=== PATIENT | male | born 1955 | race Caucasian/White ===

== ENCOUNTER 2020-01-24 09:43 | Emergency (ER) | payer OTHER ==
[~2020-01-24] VITALS: Ht 185.4 cm; Wt 98.4 kg
[2020-01-24 11:36] VITALS: BP 170/110
[2020-01-24] MEDS ORDERED: NAPR-837 PO (11:36)
--- NOTE | 2020-01-24 14:18 | REP ---
REASON FOR EXAM: Bilateral groin pain. PRIORS: None. Ultrasonic evaluation of the right and left groin was performed before and during Valsalva. There are no abnormalities. There are no bowel containing inguinal hernias or other abnormalities. Electronically Signed by Morgan Correia DO 01/24/2020 02:29 P
--- NOTE | 2020-01-24 14:19 | REP ---
SCROTAL SONOGRAPHY: HISTORY: Bilateral groin pain. FINDINGS: High-resolution bilateral scrotal sonography shows no evidence of testicular mass lesion. Testes are homogeneous. Right testicular dimensions are 4.3 x 2.9 x 3.3 cm. The left testis measures 4.1 x 3.0 x 3.1 cm. There are small bilateral hydroceles. There are two or three tiny microcalcifications in the upper pole of the right testis not felt to be significant. Testicular Doppler flow is normal bilaterally. Resistive indices are measured at 0.47 and 0.53 on the right and left respectively. There is a small 4 mm cyst in the head of the epididymis on the left. No other abnormality. IMPRESSION: No acute abnormality noted. Small bilateral hydroceles noted incidentally. 4 mm epididymal cyst on the left. Electronically Signed by Tay Cesar MD 01/24/2020 05:59 P
== END 2020-01-24 11:54 | disposition home or self-care (01) ==
LOC: M ED 09:43
DX: R10.30 Lower abdominal pain, unspecified (principal); N50.3 Cyst of epididymis; R03.0 Elevated blood-pressure reading, without diagnosis of hypertension; N43.3 Hydrocele, unspecified

== ENCOUNTER → 2020-02-16 | Outpatient (CLI) | payer OTHER ==
[~2020-02-16] MED LIST: NAPR-837 PO
[2020-02-16 10:24] LABS: APPEARANCE, URINE CLEAR (CLEAR); BACTERIA, URINE AUTO NEGATIVE (NEGATIVE); BILIRUBIN, URINE AUTO NEGATIVE (NEGATIVE); BLOOD, URINE BLOOD 1+ (NEGATIVE); COLOR, URINE YELLOW (YELLOW); GLUCOSE, URINE (UA) AUTO NEGATIVE (NEGATIVE); KETONE, URINE AUTO NEGATIVE (NEGATIVE); LEUKOCYTE ESTERASE, URINE AUTO NEGATIVE (NEGATIVE); NITRITE, URINE AUTO NEGATIVE (NEGATIVE); PROTEIN, URINE AUTO NEGATIVE (NEGATIVE); RBC, URINE AUTO 3 /HPF (0-3); SPECIFIC GRAVITY URINE AUTO 1.008 (1.002-1.035); SQUAMOUS EPITHELIAL CELL UR AU 0 /HPF (0-6); UROBILINOGEN, URINE AUTO 0.2 mg/dL (0.0-2.0); WBC, URINE AUTO 0 /HPF (0-3)
[2020-02-16 10:26] LABS: BASO % 0.6 % (0.0-1.0); EOS # 0.1 10^3/uL (0.0-0.5); EOS % 0.7 % (0.0-3.0); HEMATOCRIT 46.6 % (42.0-52.0); HEMOGLOBIN 15.6 g/dl (13.5-17.5); LYMPH # 1.5 10^3/uL (1.5-5.0); LYMPH % 21.5 % (24.0-44.0); MEAN CORPUSCULAR HEMOGLOBIN 28.9 pg (27.0-33.0); MEAN CORPUSCULAR HGB CONC 33.5 g/dl (32.0-36.5); MEAN CORPUSCULAR VOLUME 86.3 fl (80.0-96.0); MONO # 0.7 10^3/uL (0.0-0.8); MONO % 10.5 % (0.0-5.0); NEUTROPHILS # 4.6 10^3/uL (1.5-8.5); NEUTROPHILS % 66.4 % (36.0-66.0); PLATELET COUNT, AUTOMATED 197 10^3/uL (150-450); WHITE BLOOD COUNT 6.9 10^3/uL (4.0-10.0)
[2020-02-16 11:03] LABS: ALBUMIN 3.9 GM/DL (3.2-5.2); ALT/SGPT 25 U/L (12-78); BILIRUBIN,TOTAL 0.8 MG/DL (0.2-1.0); BLOOD UREA NITROGEN 18 MG/DL (7-18); CALCIUM LEVEL 9.2 MG/DL (8.8-10.2); CARBON DIOXIDE LEVEL 29 MEQ/L (21-32); CHLORIDE LEVEL 103 MEQ/L (98-107); CHOLESTEROL LEVEL 181 MG/DL (<200); CREATININE FOR GFR 0.82 MG/DL (0.70-1.30); GLOMERULAR FILTRATION RATE > 60.0 (>49); GLUCOSE, FASTING 85 MG/DL (70-100); HDL CHOLESTEROL 48 MG/DL (>40); LDL CHOLESTEROL 109 MG/DL (<100); NON-HDL-C 133 MG/DL; POTASSIUM SERUM 4.5 MEQ/L (3.5-5.1); SODIUM LEVEL 136 MEQ/L (136-145); TRIGLYCERIDES LEVEL 122 MG/DL (<150)
== END ==
LOC: M WUC 08:07
PROVIDERS: ATTEND Nurse Practitioner Family
DX: R10.30 Lower abdominal pain, unspecified (principal); Z13.220 Encounter for screening for lipoid disorders; R35.0 Frequency of micturition; Z12.5 Encounter for screening for malignant neoplasm of prostate
CPT/HCPCS: 36415; 80053; 80061; 81001; 85025; 87086; G0103

== ENCOUNTER → 2020-04-06 | Outpatient (REF) | payer OTHER ==
[2020-05-14 09:29] LABS: Lyme Disease IgG/IgM Antibodie See Separate Report
== END ==
LOC: M SFHCPLAZ 16:48
PROVIDERS: ATTEND Nurse Practitioner Family
DX: M25.50 Pain in unspecified joint (principal)

== ENCOUNTER → 2020-05-17 | Outpatient (CLI) | payer OTHER ==
[2020-05-17 13:40] LABS: BASO # 0.1 10^3/uL (0.0-0.2); BASO % 0.7 % (0.0-1.0); EOS # 0.1 10^3/uL (0.0-0.5); EOS % 1.6 % (0.0-3.0); HEMATOCRIT 45.3 % (42.0-52.0); HEMOGLOBIN 15.6 g/dl (13.5-17.5); LYMPH # 1.4 10^3/uL (1.5-5.0); LYMPH % 20.2 % (24.0-44.0); MEAN CORPUSCULAR HEMOGLOBIN 29.9 pg (27.0-33.0); MEAN CORPUSCULAR HGB CONC 34.4 g/dl (32.0-36.5); MEAN CORPUSCULAR VOLUME 86.8 fl (80.0-96.0); MONO # 0.8 10^3/uL (0.0-0.8); MONO % 10.9 % (0.0-5.0); NEUTROPHILS # 4.6 10^3/uL (1.5-8.5); NEUTROPHILS % 66.3 % (36.0-66.0); PLATELET COUNT, AUTOMATED 200 10^3/uL (150-450); RED BLOOD COUNT 5.22 10^6/uL (4.30-6.10); WHITE BLOOD COUNT 6.9 10^3/uL (4.0-10.0)
[2020-05-17 13:48] LABS: ALBUMIN 3.9 GM/DL (3.2-5.2); ALT/SGPT 28 U/L (12-78); BILIRUBIN,TOTAL 0.6 MG/DL (0.2-1.0); BLOOD UREA NITROGEN 17 MG/DL (7-18); CALCIUM LEVEL 9.4 MG/DL (8.8-10.2); CARBON DIOXIDE LEVEL 29 MEQ/L (21-32); CHLORIDE LEVEL 105 MEQ/L (98-107); CREATININE FOR GFR 0.92 MG/DL (0.70-1.30); GLOMERULAR FILTRATION RATE > 60.0 (>49); GLUCOSE, FASTING 94 MG/DL (70-100); POTASSIUM SERUM 4.7 MEQ/L (3.5-5.1); SODIUM LEVEL 140 MEQ/L (136-145)
--- NOTE | 2020-05-31 14:18 | REPPI ---
KNEE RADIOGRAPH CLINICAL: Bilateral knee pain. TECHNIQUE: Single AP weightbearing view of the right and left knee. FINDINGS: Early advanced symmetric arthritic changes are appreciated. Findings include increased sclerosis along the tibial surface primarily involving the medial portions along with cortical irregularities and early osteophyte formation noted along the medial femoral condyles and medial tibial plateaus. No obvious acute fracture or dislocation. IMPRESSION: Symmetric early advanced osteoarthritic degenerative changes primarily involving the medial compartments. MTDD
== END ==
LOC: M PLAIMG 09:20
PROVIDERS: ATTEND Family Medicine
DX: M17.0 Bilateral primary osteoarthritis of knee (principal); R10.84 Generalized abdominal pain; R53.83 Other fatigue

== ENCOUNTER → 2020-05-22 | Outpatient (CLI) | payer OTHER ==
[~2020-05-22] MED LIST changes: +GASTROGRAFIN SOLUTION 30ML (Q9963) As Ordered ONE; +ISOVUE-370 76% 100ML VIAL As Ordered ONE
--- NOTE | 2020-05-31 14:19 | REP ---
CT ABDOMEN AND PELVIS WITH CONTRAST CLINICAL: Generalized abdominal pain. TECHNIQUE: Axial contrast enhanced images from the lung bases to the pubic symphysis using oral (per protocol) and 100 mL Isovue-370 intravenous contrast material with coronal and sagittal reformations. FINDINGS: Lung bases are clear. Visualized heart and pericardium are normal. Liver, spleen, pancreas, gallbladder, bilateral adrenal glands, and kidneys are normal. The enteric system is without obstruction or acute inflammatory process. Scattered colonic diverticula noted without acute diverticulitis. Normal terminal ileum and appendix are identified in the right lower quadrant. Pelvis demonstrates mildly prominent prostate gland with mass effect on the base of the bladder. The bladder itself is otherwise unremarkable. No pelvic fluid or ascites. No free air. No adenopathy. Abdominal aorta and vasculature without aneurysm or dissection. Musculoskeletal structures demonstrate age-related changes without acute osseous abnormality. IMPRESSION: * No acute abdominopelvic pathology appreciated. * Diverticulosis without acute diverticulitis. * Mild prostatomegaly. MTDD
== END ==
LOC: M RAD 11:50
PROVIDERS: ATTEND Family Medicine
DX: R10.84 Generalized abdominal pain (principal)
CPT/HCPCS: 74177; Q9963; Q9967

== ENCOUNTER → 2020-06-12 | Outpatient (REF) | payer OTHER ==
[~2020-06-12] MED LIST changes: -GASTROGRAFIN SOLUTION 30ML (Q9963) As Ordered ONE; -ISOVUE-370 76% 100ML VIAL As Ordered ONE
[2020-06-12 17:39] LABS: APPEARANCE, URINE CLEAR (CLEAR); BACTERIA, URINE AUTO NEGATIVE (NEGATIVE); BILIRUBIN, URINE AUTO NEGATIVE (NEGATIVE); BLOOD, URINE BLOOD 1+ (NEGATIVE); COLOR, URINE YELLOW (YELLOW); GLUCOSE, URINE (UA) AUTO NEGATIVE (NEGATIVE); KETONE, URINE AUTO NEGATIVE (NEGATIVE); LEUKOCYTE ESTERASE, URINE AUTO NEGATIVE (NEGATIVE); MUCUS, URINE SMALL (NEGATIVE); NITRITE, URINE AUTO NEGATIVE (NEGATIVE); PROTEIN, URINE AUTO NEGATIVE (NEGATIVE); RBC, URINE AUTO 3 /HPF (0-3); SPECIFIC GRAVITY URINE AUTO 1.018 (1.002-1.035); SQUAMOUS EPITHELIAL CELL UR AU 0 /HPF (0-6); UROBILINOGEN, URINE AUTO 0.2 mg/dL (0.0-2.0); WBC, URINE AUTO 0 /HPF (0-3)
== END ==
LOC: M SMT 17:12
PROVIDERS: ATTEND Urology
DX: N34.3 Urethral syndrome, unspecified (principal)

== ENCOUNTER → 2020-07-13 | Outpatient (REF) | payer OTHER ==
[2020-07-13 14:31] LABS: APPEARANCE, URINE CLEAR (CLEAR); BACTERIA, URINE AUTO NEGATIVE (NEGATIVE); BILIRUBIN, URINE AUTO NEGATIVE (NEGATIVE); BLOOD, URINE BLOOD 1+ (NEGATIVE); COLOR, URINE STRAW (YELLOW); GLUCOSE, URINE (UA) AUTO NEGATIVE (NEGATIVE); KETONE, URINE AUTO NEGATIVE (NEGATIVE); LEUKOCYTE ESTERASE, URINE AUTO NEGATIVE (NEGATIVE); NITRITE, URINE AUTO NEGATIVE (NEGATIVE); PROTEIN, URINE AUTO NEGATIVE (NEGATIVE); RBC, URINE AUTO 1 /HPF (0-3); SPECIFIC GRAVITY URINE AUTO 1.005 (1.002-1.035); SQUAMOUS EPITHELIAL CELL UR AU 0 /HPF (0-6); UROBILINOGEN, URINE AUTO 0.2 mg/dL (0.0-2.0); WBC, URINE AUTO 0 /HPF (0-3)
== END ==
LOC: M SMT 12:59
PROVIDERS: ATTEND Urology
DX: R35.0 Frequency of micturition (principal)

== ENCOUNTER → 2020-08-08 | Outpatient (CLI) | payer OTHER ==
--- NOTE | 2020-08-08 13:10 | REP ---
INDICATION: R10.30 LOWER ABD PAIN. Abdominal wall sonography. Rule out hernia. COMPARISON: None. TECHNIQUE: Transabdominal abdominal wall scanning is performed.. FINDINGS: Scanning through the right and left lower quadrant abdominal wall regions demonstrate no evidence of hernia on either side. No cyst, mass, or abnormal fluid collection is seen.. Visualized bladder solares are smooth.. . IMPRESSION: Unremarkable abdominal wall sonography. No evidence for hernia or other abnormality.. <Electronically signed by Erik Cesar > 08/08/20 [id number]
== END ==
LOC: M WHC 07:57
PROVIDERS: ATTEND Nurse Practitioner Family
DX: R10.30 Lower abdominal pain, unspecified (principal)

== ENCOUNTER → 2020-09-27 | Outpatient (CLI) | payer OTHER | LOC: M LABSMTC 10:15 | PROVIDERS: ATTEND Anesthesiology | DX: Z01.812 Encounter for preprocedural laboratory examination (principal); Z20.822 Contact with and (suspected) exposure to COVID-19 ==

== ENCOUNTER 2020-10-02 07:34 | Day surgery (SDC) | payer OTHER ==
[~2020-10-02] VITALS: Ht 185.4 cm; Wt 102.1 kg
[~2020-10-02 07:34] MED LIST changes: +NS 1,000 ML IV ONE
--- OUTSIDE RECORDS SUMMARY | 2020-10-02 07:39 | CCD | Continuity of Care Document ---
Author Manish Thomas M.D. Organization Unknown Address [address], [address] [place] [address] Phone [phone] Care Team Providers Care Parole Agent Name Role Phone Lyudmila MedinaIsidro AUTM [phone] AUTM Unavailable Problems Description No Information Available Social History Type Date Description Comments Sex Unknown ETOH Use Denies alcohol use Tobacco Use Start: Unknown Non Smoker Allergies, Adverse Reactions, Alerts Description No Known Drug Allergies Medications Active Medications SIG Qnty Indications Ordering Provide r Date Clenpiq 10-3.5-12mg-GM -GM/160ML S olution follow pre-procedure instructions. start day before procedure. (if not covered by insurance please fill gavilyte script). 320ml Z12.11 Leonel Prakash M.D. 09/12/2020 Gavilyte-N With Flavor Pack 420gm Solution Rec drink the liquid as per the pre-procedur e instructions. ( fill this script only if clenpiq is not covered by insurance). 4000ml Z12.11 Leonel Prakash M.D. 09/12/[address] take 4 tablets together as per bowel preparation instructions. 4tabs R10.30 Leonel Prakash M.D. 09/12/2020 Voltaren 1% Gel use as direct ed Unknown Immunizations Description No Information Available Vital Signs Date Vital Result Comment 09/12/2020 8:25am BP Systolic 124 mmHg BP Diastolic 68 mmHg Height 73 inches 6'1" Weight 232.00 lb BMI (Body Mass Index) 30.6 kg/m2 [place] Body Weight 184 lb Weight 105.235 kg BSA (Body Surface Area) 2.29 m2 Results Description No Information Available Procedures Description No Information Available Medical Devices Description No Information Available Encounters Description No Information Available Assessments Date Code Description Provider 09/12/2020 R10.30 Lower abdominal pain, unspecifie d Leonel Prakash M.D. 09/12/2020 Z12.11 Encounter for screening for selma gnant neoplasm of colon Leonel Prakash M.D. Plan of Treatment 09/12/2020 - Leonel Prakash M.D.* R10.30 Lower abdominal pain, unspecified * Z12.11 Encounter for screening for malignant neoplasm of colon * * New Medication:* Dulcolax 5 mg * New Orders:* Colonoscopy, Ordered: 09/12/20 * Comments:* Impression:-- Lower abdominal pain which extends to the right and left side of the abdominal and some abdominal bloating sensation -- DDx-- DIverticulosis of colon vs Colon polyps vs colon cancer. -- Average risk for colon polyps and cancer due to age. * Recommendations:* -- Educated patient on prior test results and all possible differential diagnoses. All questions answered. -- Patient is educated on taking high fiber diet, low FODMAP diet for symptoms relief. -- Will schedule for Screening colonoscopy. The procedure, indications, risks (bleeding, perforation, infection, hypotension, respiratory depression, allergy, need for endotracheal intubation, surgery, colostomy, cardiac arrest, even ), benefits, limitations (e.g., missing a lesion), and all other alternatives (including no intervention) were explained to the patient who understood and agreed for the procedure. -- Return to GI clinic 2 weeks post procedures. -- Follow up with PMD for routine medical care and other age appropriate health maintenance.. Functional Status Description No Information Available Mental Status Description No Information Available Referrals Refer to Reason for Referral Status Appt Date Ochoa Sanders MD colo screening with lower abdominal pain Perla ramos 09/12/2020 [facility], Gastroenterology [address], [address] [place] [address] [phone]
--- OUTSIDE RECORDS SUMMARY | 2020-10-02 07:39 | CCD ---
Author Author [facility] Organization [facility] Address Unknown Phone Unavailable Care Team Providers Care French Folding Machine Operator Name Role Phone Lyudmila Medina PROBLEMS Type Condition ICD9-CM Code PMN28-QU Code Onset Dates Condition S tatus SNOMED Code Notes Problem Overactive bladder N32.81 Active 178421610 Problem Hypercholesterolemia E78.00 Active 84871855 Problem Bladder pain R39.89 Active 82824605 Problem Nocturia R35.1 Active 926342316 Problem Primary osteoarthritis of both knees M17.0 Act srini 624513057 Problem Enlarged prostate N40.0 Active 261547277 Problem 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 81382 00 Problem Benign prostatic hyperplasia with lower urinary tract symptoms N40.1 Active 74328590412257 ALLERGIES No Known Allergies ENCOUNTERS from 1955 to 2020-08-10 Encounter Location Date Provider Diagnosis [address] [address] Jul, 020 Lyudmila Medina Lower abdominal pain R10.30 IMMUNIZATIONS Vaccine Route Administration Date Status Influenza (18 yrs & older) Flublok Unknown Aug 07, 2020 Administered Pneumococcal Adult 0.5mL (Pneumovax 23) Unknown Aug 07, 2020 Administered SOCIAL HISTORY Tobacco Use: Social History Observation Description Date Details (start date - stop date) Never Smoker Sex Assigned At : Social History Observation Description Sex Assigned At Unknown Education: Question Answer Notes Level of Education: High School Audit Question Answer Notes Total Score: 0 Interpretation: Alcohol Education Language: Question Answer Notes Languages spoken: Greek Anabaptism: Question Answer Notes Anabaptism 99 Other Sexual Hx: Question Answer Notes Had sex in the last 12 months (vaginal, oral, or anal)? Yes with Women only Use protection? No Drug and Alcohol Question Answer Notes Total Score: 0 Interpretation: No problems reported Alcohol Screening: Question Answer Notes Did you have a drink containing alcohol in the past year? Ye s Points 2 Interpretation Negative How often did you have six or more drinks on one occas ion in the past year? Never (0 points) How many drinks did you have on a typica l day when you were drinking in the past year? 3 or 4 (1 point) How often did you have a drink containing alcohol in t he past year? Monthly or less (1 point) Tobacco Use: Question Answer Notes Are you a: never smoker REASON FOR REFERRAL No Information VITAL SIGNS Weight 230 lbs Jul, Height 73 in Jul, BMI 30.34 kg/m2 Jul, Heart Rate 88 /min Jul, Respiratory Rate 20 /min Jul, Temperature 97 degrees Fahrenheit Jul, Oximetry 99 Jul, Blood pressure systolic 134 mm Hg Jul, Blood pressure diastolic 80 mm Hg Jul, MEDICATIONS Medication SIG (Take, Route, Frequency, Duration) Notes Start Da te End Date Status Finasteride 5 MG 1 tablet Orally Once a day for 30 day(s) May, Not-Taking Sulfamethoxazole-Trimethoprim 800-160 MG 1 tablet Orally bid for 21 day(s) May, Not-Taking Multi For Him 50+ - as directed Orally Active Voltaren 1 % as directed to knees Transdermal four times nish y as needed May, Active Tamsulosin HCl 0.4 MG 1 capsule Orally Once a day for 30 day(s) Jul, Not-Taking Myrbetriq 25 MG TK 1 T PO QD Oral No t-Taking PROCEDURES No Information RESULTS Component Value Reference Range PLZ PELVIC NON OB COMPLETE Reviewed date:08/09/2020 13:23:05 Interpretation:Appt on 08/08/20. @ 8:00 am. NPO after midinght. Patient aware. order faxed Performing Lab:[facility], [place] [address] REASON FOR VISIT 2 month follow up MEDICAL (GENERAL) HISTORY Type Description Date Medical History urinary frequency Surgical History No Surgical history information Goals Section No Information Health Concerns No Information MEDICAL EQUIPMENT No Information MENTAL STATUS No Information FUNCTIONAL STATUS No Information ASSESSMENTS Encounter Date Diagnosis Assessment Notes Treatment Notes Treatm ent Clinical Notes Jul, Lower abdominal pain (ICD-10 - R10.30) will check ultrasound. Advised if pain worsens or bulging noted - to call offfice or go to ED. F/up with urology as advised PLAN OF TREATMENT Treatment Notes Assessment Notes Clinical Notes Lower abdominal pain will check ultrasou nd. Advised if pain worsens or bulging noted - to call offfice or go to ED. F/up with urology as advised Next Appt Details 2 - 3 Days Reason:follow-up Follow Up:2 - 3 Daysfollow-up Insurance Providers Payer Name Payer Address Payer Phone Insured Name Patient Relati onship to Insured Coverage Start Date Coverage End Date [facility] [address] [place] [address] [employer] self
--- OUTSIDE RECORDS SUMMARY | 2020-10-02 07:39 | CCD ---
Author Author [facility] Organization [facility] Address Unknown Phone Unavailable Support Name Relationship Address Phone [employer] Next Of Kin [address] [place] [address] WHITESLUM Next Of Kin [address] [place] [address] [facility]. Next Of Kin [address] [place] [address] WHITES [employer]UM[employer] Next Of Kin [address] [place] [address] TAMMY RAND Next Of Kin [address] [place] [address] Tammy Rand [place] [phone] Re-disclosure Warning The records that you are about to access may contain information from federally-assisted alcohol or drug abuse programs. If such information is present, then the following federally mandated warning applies: This information has been disclosed to you from records protected by federal confidentiality rules (42 CFR part 2). The federal rules prohibit you from making any further disclosure of this information unless further disclosure is expressly permitted by the written consent of the person to whom it pertains or as otherwise permitted by 42 CFR part 2. A general authorization for the release of medical or other information is NOT sufficient for this purpose. The Federal rules restrict any use of the information to criminally investigate or prosecute any alcohol or drug abuse patient.The records that you are about to access may contain highly sensitive health information, the redisclosure of which is protected by Article 27-F of the [facility] Public Health law. If you continue you may have access to information: Regarding HIV / AIDS; Provided by facilities licensed or operated by the [facility] Office of Mental Health; or Provided by the [facility] Office for People With Developmental Disabilities. If such information is present, then the following [place] State mandated warning applies: This information has been disclosed to you from confidential records which are protected by state law. State law prohibits you from making any further disclosure of this information without the specific written consent of the person to whom it pertains, or as otherwise permitted by law. Any unauthorized further disclosure in violation of state law may result in a fine or [place] health [facility] sentence or both. A general authorization for the release of medical or other information is NOT sufficient authorization for further disc losure. Family History Family Member Name Family Member Gender Family Member Status Date o f Status Description Data Source(s) Unknown Unknown Problem MEDENT ([facility]) Encounters Encounter Providers Location Date Indications Data Source(s ) Outpatient [address] [facility] [id number] 08/07/2020 12:00:00 AM EST eCW1 ([facility]) Outpatient [address] [facility] [id number] 07/13/2020 12:00:00 AM EST eCW1 ([facility]) Outpatient [address] [facility] [id number] 06/12/2020 12:00:00 AM EDT eCW1 ([facility]) Outpatient [address] [facility] [place] [address] 06/05/2020 12:00:00 AM EDT eCW1 ([facility]) Unknown [address] [facility] [place] [id number] 06/01/2020 12:00:00 AM EDT eCW1 ([facility]) Outpatient [address] [facility] [place] [address] 02/14/2020 12:00:00 AM EDT eCW1 ([facility]) Outpatient 02/09/2020 05:40:00 AM EDT [facility] Immunizations Vaccine Date Status Description Data Source(s) pneumococcal polysaccharide PPV23 08/07/2020 07:31:00 AM EST comple richard eCW1 ([facility]) influenza, recombinant, quadrIvalent,injectable, prese rvative free 08/07/2020 07:31:00 AM EST completed eCW1 ([facility]) pneumococcal polysaccharide PPV23 08/07/2020 07:31:00 AM EST comple richard eCW1 ([facility]) influenza, recombinant, quadrIvalent,injectable, prese rvative free 08/07/2020 07:31:00 AM EST completed eCW1 ([facility]) INFLUENZA VIRUS VACCINE QUADRIVAL (6 MOS AND UP)/PF 06/13/2020 12:00:00 AM EDT completed [facility] PNEUMOCOCCAL 23-VALENT POLYSACCHARIDE VACCINE 06/13/2020 12: 00:00 AM EDT completed [facility] Medications Medication Brand Name Start Date Product Form Dose Route Admi nistrative Instructions Pharmacy Instructions Status Indications Reaction Description Data Source(s) POLYETHYLENE GLYCOL 3350 105 MG/ML / Pot assium Chloride 0.53140 MEQ/ML / Sodium Bicarbonate 0.017 MEQ/ML / Sodium Chloride 0.0479 MEQ/ML Oral Solution [GaviLyte-N] Gavilyte-N With Flavor Pack 09/12/2020 12:00:00 AM EST active MEDENT ([facility], ) Clenpiq Clenpiq 09/12/2020 12:00:00 AM EST active MEDENT ([facility], ) Bisacodyl 5 MG Delayed Release Oral Tablet [Dulcolax] Dulcol ax 09/12/2020 12:00:00 AM EST active M EDENT ([facility], ) Tamsulosin hydrochloride 0.4 MG Oral Capsule Tamsulosi n HCl 0.4 MG Tamsulosin HCl 0.4 MG 07/13/2020 12:00:00 AM EST 1.0 {capsule} suspended Tamsulosin HCl 0.4 MG eCW1 ([facility]) Tamsulosin hydrochloride 0.4 MG Oral Capsule Tamsulosi n HCl 0.4 MG Tamsulosin HCl 0.4 MG 07/13/2020 12:00:00 AM EST 1.0 {capsule} suspended Tamsulosin HCl 0.4 MG eCW1 ([facility]) Sulfamethoxazole 800 MG / Trimethoprim 1 60 MG Oral Tablet Sulfamethoxazole- Trimethoprim 800-160 MG Sulfamethoxazole-Trimethoprim 800-160 MG 06/12/2020 12:00:00 AM EDT 1.0 {tablet} active Sulfamethoxazole-Trimethoprim 800-160 MG eCW1 ([facility]) Sulfamethoxazole 800 MG / Trimethoprim 1 60 MG Oral Tablet Sulfamethoxazole- Trimethoprim 800-160 MG Sulfamethoxazole-Trimethoprim 800-160 MG 06/12/2020 12:00:00 AM EDT 1.0 {tablet} suspended Sulfamethoxazole-Trimethoprim 800-160 MG eCW1 ([facility]) Tamsulosin hydrochloride 0.4 MG Oral Capsule Tamsulosi n HCl 0.4 MG Tamsulosin HCl 0.4 MG 06/12/2020 12:00:00 AM EDT 1.0 {capsule} active Tamsulosin HCl 0.4 MG eCW1 ([facility]) Tamsulosin hydrochloride 0.4 MG Oral Capsule Tamsulosi n HCl 0.4 MG Tamsulosin HCl 0.4 MG 06/12/2020 12:00:00 AM EDT 1.0 {capsule} active Tamsulosin HCl 0.4 MG eCW1 ([facility]) Sulfamethoxazole 800 MG / Trimethoprim 1 60 MG Oral Tablet Sulfamethoxazole- Trimethoprim 800-160 MG Sulfamethoxazole-Trimethoprim 800-160 MG 06/12/2020 12:00:00 AM EDT 1.0 {tablet} suspended Sulfamethoxazole-Trimethoprim 800-160 MG eCW1 ([facility]) Sulfamethoxazole 800 MG / Trimethoprim 1 60 MG Oral Tablet Sulfamethoxazole- Trimethoprim 800-160 MG Sulfamethoxazole-Trimethoprim 800-160 MG 06/12/2020 12:00:00 AM EDT 1.0 {tablet} active Sulfamethoxazole-Trimethoprim 800-160 MG eCW1 ([facility]) Finasteride 5 MG Oral Tablet Finasteride 5 MG 06/05/2020 12:00:00 A M EDT 1.0 {tablet} active Finasteride 5 MG eCW1 ( [facility]) Diclofenac Sodium 0.01 MG/MG Topical Gel [Voltaren] Voltaren 1 % Voltaren 1 % 06/05/2020 12:00:00 AM EDT active Voltaren 1 % eCW1 ([facility]) Finasteride 5 MG Oral Tablet Finasteride 5 MG 06/05/2020 12:00:00 A M EDT 1.0 {tablet} suspended Finasteride 5 MG eCW1 ([facility]) Diclofenac Sodium 0.01 MG/MG Topical Gel [Voltaren] Voltaren 1 % Voltaren 1 % 06/05/2020 12:00:00 AM EDT active Voltaren 1 % eCW1 ([facility]) Finasteride 5 MG Oral Tablet Finasteride 5 MG 06/05/2020 12:00:00 A M EDT 1.0 {tablet} suspended Finasteride 5 MG eCW1 ([facility]) Diclofenac Sodium 0.01 MG/MG Topical Gel [Voltaren] Voltaren 1 % Voltaren 1 % 06/05/2020 12:00:00 AM EDT active Voltaren 1 % eCW1 ([facility]) Diclofenac Sodium 0.01 MG/MG Topical Gel [Voltaren] Voltaren 1 % Voltaren 1 % 06/05/2020 12:00:00 AM EDT active Voltaren 1 % eCW1 ([facility]) Finasteride 5 MG Oral Tablet Finasteride 5 MG 06/05/2020 12:00:00 A M EDT 1.0 {tablet} active Finasteride 5 MG eCW1 ( [facility]) Insurance Providers Payer name Policy type / Coverage type Policy ID Covered constitution party ID Covered constitution party's relationship to lundberg Policy Lundberg Plan Information [facility] [id number] SP [id number] [facility] [id number] SP [id number] [facility] O [id number] S [id number] [facility] [id number] SP [id number] [facility] Commercial [id number] Self [id number] Problems, Conditions, and Diagnoses Code Display Name Description Problem Type Effective Dates Data Source(s) N40.1 Lower urinary tract symptoms due to trista gn prostatic hypertrophy Benign prostatic hyperplasia with lower urinary tract symptoms Problem 06/12/2020 12:00:00 AM EDT eCW1 ([facility]) N34.3 Dysuria-frequency syndrome Dysuria-frequency syndrome Problem 06/12/2020 12:00:00 AM EDT eCW1 ([facility]) R35.1 Nocturia Nocturia Problem 06/12/2020 12:00:00 AM ED T eCW1 ([facility]) R39.89 Bladder pain Bladder pain Problem 06/12/2020 12:00:00 A M EDT eCW1 ([facility]) N40.0 [id number] Enlarged prostate Problem 06/05/2020 12:00:0 0 AM EDT eCW1 ([facility]) M17.0 [id number] Primary osteoarthritis of both knees Prob jennifer 06/05/2020 12:00:00 AM EDT eCW1 ([facility]) E78.00 [id number] Hypercholesterolemia Problem 03/07/2020 12:0 0:00 AM EDT eCW1 ([facility]) N32.81 [id number] Overactive bladder Problem 03/07/2020 12:00: 00 AM EDT eCW1 ([facility]) Results ID Date Data Source [id number] 09/27/2020 09:45:00 AM EST [facility] Name Value Range Interpretation Code Description Data Olga Lidia rce(s) Supporting Document(s) SARS coronavirus 2 RNA Not Detected [facility] This lab was ordered by [facility] and reported by [facility]. ID Date Data Source [id number] 07/18/2020 12:00:00 AM EST [facility] Name Value Range Interpretation Code Description Data Olga Lidia rce(s) Supporting Document(s) SARS-CoV2 Rapid Antigen [facility] This lab was ordered by [facility] and reported by [facility]. ID Date Data Source URINE CULTURE 06/13/2020 01:01:09 PM EDT eCW1 ([facility]) Name Value Range Interpretation Code Description Data Olga Lidia rce(s) Supporting Document(s) URINE CULTURE eCW1 ([facility]) ID Date Data Source UA URINALYSIS 06/13/2020 09:40:07 AM EDT eCW1 ([facility]) Name Value Range Interpretation Code Description Data Olga Lidia rce(s) Supporting Document(s) UA URINALYSIS eCW1 ([facility]) ID Date Data Source [id number] 04/10/2020 06:05:00 PM EDT [facility] Name Value Range Interpretation Code Description Data Olga Lidia rce(s) Supporting Document(s) Lyme IgG/IgM Ab 0.00-0.90 [facility] Negative <0.91 Equivocal 0.91 - 1.09 Positive >1.09 Lyme Disease Ab, Quant, IgM 0.00-0.79 [facility] Negative <0.80 Equivocal 0.80 - 1.19 Positive >1.19 IgM levels may peak at 3-6 weeks post infection, then gradually decline. Procedure Social History Code Duration Value Status Description Data Source(s ) Smoking 08/07/2020 12:00:00 AM EST Never Smoker completed Never S moker eCW1 ([facility]) Smoking 08/07/2020 12:00:00 AM EST Never Smoker completed Never S moker eCW1 ([facility]) Smoking 06/12/2020 12:00:00 AM EDT Never Smoker completed Never S moker eCW1 ([facility]) Smoking 06/12/2020 12:00:00 AM EDT Never Smoker completed Never S moker eCW1 ([facility]) Smoking 03/07/2020 12:00:00 AM EDT Never Smoker completed Never S moker eCW1 ([facility]) Smoking 02/14/2020 12:00:00 AM EDT Never Smoker completed Never S moker eCW1 ([facility]) Vital Signs ID Date Data Source UNK Name Value Range Interpretation Code Description Data Source(s) Body surface area Derived from formula 2.29 m2 2.29 m2 [facility] ([facility]) Body weight 105.235 kg 105.235 kg [facility] ([facility]) [place] body weight 184 [lb_av] 184 [lb_av] MED[facility] T ([facility]) Body mass index (BMI) [Ratio] 30.6 kg/m2 30.6 k g/m2 [facility] ([facility]) Body weight 232.00 [lb_av] 232.00 [lb_av] [facility]) Body height 73 [in_i] 73 [in_i] [facility] ([facility]) 6'1" Diastolic blood pressure 68 mm[Hg] 68 mm[Hg] [facility] ([facility] ) Systolic blood pressure 124 mm[Hg] 124 mm[Hg] M EDENT ([facility], ) Diastolic blood pressure 80 mm[Hg] 80 mm[Hg] eCW1 ([facility]) Systolic blood pressure 134 mm[Hg] 134 mm[Hg] e CW1 ([facility]) Body temperature 97 [degF] 97 [degF] eCW1 ([facility]) Respiratory rate 20 /min 20 /min eCW1 ([facility]) Heart rate 88 /min 88 /min eCW1 ([facility]) Body mass index (BMI) [Ratio] 30.34 kg/m2 30.34 kg/m2 eCW1 ([facility]) Body height 73 [in_i] 73 [in_i] eCW1 ([facility]) Body weight 230 [lb_av] 230 [lb_av] eCW1 ([facility]) Diastolic blood pressure 74 mm[Hg] 74 mm[Hg] eCW1 ([facility]) Systolic blood pressure 156 mm[Hg] 156 mm[Hg] e CW1 ([facility]) Body temperature 97.4 [degF] 97.4 [degF] eCW1 ( [facility]) Respiratory rate 18 /min 18 /min eCW1 ([facility]) Heart rate 74 /min 74 /min eCW1 ([facility]) Body mass index (BMI) [Ratio] 30.05 kg/m2 30.05 kg/m2 eCW1 ([facility]) Body height 73 [in_i] 73 [in_i] eCW1 ([facility]) Body weight 227.8 [lb_av] 227.8 [lb_av] eCW1 ([facility]) Diastolic blood pressure 82 mm[Hg] 82 mm[Hg] eCW1 ([facility]) Systolic blood pressure 140 mm[Hg] 140 mm[Hg] e CW1 ([facility]) Body temperature 97.8 [degF] 97.8 [degF] eCW1 ( [facility]) Respiratory rate 18 /min 18 /min eCW1 ([facility]) Heart rate 76 /min 76 /min eCW1 ([facility]) Body mass index (BMI) [Ratio] 29.42 kg/m2 29.42 kg/m2 eCW1 ([facility]) Body height 73 [in_i] 73 [in_i] eCW1 ([facility]) Body weight 223 [lb_av] 223 [lb_av] eCW1 ([facility]) Diastolic blood pressure 78 mm[Hg] 78 mm[Hg] eCW1 ([facility]) Systolic blood pressure 134 mm[Hg] 134 mm[Hg] e CW1 ([facility]) Body temperature 97.0 [degF] 97.0 [degF] eCW1 ( [facility]) Respiratory rate 16 /min 16 /min eCW1 ([facility]) Heart rate 82 /min 82 /min eCW1 ([facility]) Body mass index (BMI) [Ratio] 30.02 kg/m2 30.02 kg/m2 eCW1 ([facility]) Body height 73 [in_i] 73 [in_i] eCW1 ([facility]) Body weight 227.6 [lb_av] 227.6 [lb_av] eCW1 ([facility]) Diastolic blood pressure 82 mm[Hg] 82 mm[Hg] eCW1 ([facility]) Systolic blood pressure 140 mm[Hg] 140 mm[Hg] e CW1 ([facility]) Body temperature 98.2 [degF] 98.2 [degF] eCW1 ( [facility]) Respiratory rate 16 /min 16 /min eCW1 ([facility]) Heart rate 89 /min 89 /min eCW1 ([facility]) Body mass index (BMI) [Ratio] 28.34 kg/m2 28.34 kg/m2 eCW1 ([facility]) Body height 73 [in_i] 73 [in_i] eCW1 ([facility]) Body weight 214.8 [lb_av] 214.8 [lb_av] eCW1 ([facility]) Patient Treatment Plan of Care Planned Activity Planned Date Details Description Data Source (s) Tamsulosin hydrochloride 0.4 MG Oral Capsule 06/12/2020 12:00:00 AM EDT eCW1 ([facility]) Sulfamethoxazole 800 MG / Trimethoprim 160 MG Oral Tab let 06/12/2020 12:00:00 AM EDT eCW1 ([facility]) Tamsulosin hydrochloride 0.4 MG Oral Capsule 06/12/2020 12:00:00 AM EDT eCW1 ([facility]) Sulfamethoxazole 800 MG / Trimethoprim 160 MG Oral Tab let 06/12/2020 12:00:00 AM EDT eCW1 ([facility])
--- OUTSIDE RECORDS SUMMARY | 2020-10-02 07:39 | CCD ---
Author Author [facility] Organization [facility] Address Unknown Phone Unavailable Care Team Providers Care Panel Installer Name Role Phone Gage Lopes Unavailable PROBLEMS Type Condition ICD9-CM Code [id number] Code Onset Dates Condition S tatus SNOMED Code Notes Problem Overactive bladder N32.81 Active 334393909 Problem Hypercholesterolemia E78.00 Active 34604690 Problem Bladder pain R39.89 Active 92098593 Problem Nocturia R35.1 Active 583097614 Problem Primary osteoarthritis of both knees M17.0 Act srini 432759847 Problem Enlarged prostate N40.0 Active 747417506 Problem 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 90060 00 Problem Benign prostatic hyperplasia with lower urinary tract symptoms N40.1 Active [id number] ALLERGIES No Known Allergies ENCOUNTERS from 1955 to 2020-08-16 Encounter Location Date Provider Diagnosis [facility] [id number] [place] [address] [place] [address] Jul, Gage Lopes Increased urinary frequency R35.0 and Lower abdominal pain R10.30 IMMUNIZATIONS Vaccine Route [...] Education Language: Question Answer Notes Languages spoken: Armenian Spiritism: Question Answer Notes Spiritism 99 Other Sexual Hx: Question Answer Notes [...] FOR REFERRAL No Information VITAL SIGNS Weight 227.8 lbs Jul, Height 73 in Jul, BMI 30.05 kg/m2 Jul, Heart Rate 74 /min Jul, Respiratory Rate 18 /min Jul, Temperature 97.4 degrees Fahrenheit Jul, Oximetry 96 Jul, Blood pressure systolic 156 mm Hg Jul, Blood pressure diastolic 74 mm Hg Jul, MEDICATIONS Medication SIG (Take, [...] Oral No t-Taking PROCEDURES No Information RESULTS No Results REASON FOR VISIT 1 MO FU MEDICAL (GENERAL) HISTORY Type Description Date Medical History urinary frequency Surgical History No Surgical history information Goals Section No Information Health Concerns No Information MEDICAL EQUIPMENT No Information MENTAL STATUS No Information FUNCTIONAL STATUS No Information ASSESSMENTS Encounter Date Diagnosis Assessment Notes Treatment Notes Treatm ent Clinical Notes Jul, Increased urinary frequency (ICD-10 - R35.0) Jul, Lower abdominal pain (ICD-10 - R10.30) PLAN OF TREATMENT Treatment Notes Test Name Order Date Urinalysis, no micro 2020-08-16 Insurance Providers Payer Name Payer Address Payer Phone Insured Name Patient Relati onship to Insured Coverage Start Date Coverage End Date [facility] [address] [facility] [address] [employer] self
--- OUTSIDE RECORDS SUMMARY | 2020-10-02 07:39 | CCD ---
Author Author [facility] Organization [facility] Address Unknown Phone Unavailable Care Team Providers Care Cable Stretcher And Tester Name Role Phone Gage Lopes Unavailable PROBLEMS Type Condition ICD9-CM Code [id number] Code Onset Dates Condition S tatus SNOMED Code Notes Problem Overactive bladder N32.81 Active 020740502 Problem Hypercholesterolemia E78.00 Active 57149727 Problem Bladder pain R39.89 Active 17724964 Problem Nocturia R35.1 Active 878841837 Problem Primary osteoarthritis of both knees M17.0 Act srini 253232330 Problem Enlarged prostate N40.0 Active 514164124 Problem 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 84191 00 Problem Benign prostatic hyperplasia with lower urinary tract symptoms N40.1 Active [id number] ALLERGIES No Known Allergies ENCOUNTERS from 1955 to 2020-07-09 Encounter Location Date Provider Diagnosis [facility] [address] [place] [address] [place] [address] May, Gage Lopes Dysuria-frequency syndrome N34.3 ; Bladder pain R39.89 ; Benign prostatic hyperplasia with lower urinary tract symptoms N40.1 and Nocturia R35.1 IMMUNIZATIONS No Information SOCIAL HISTORY Tobacco Use: Social History Observation Description Date Details (start date - stop date) Never Smoker Sex Assigned At : Social History Observation Description Sex Assigned At Unknown Education: Question Answer Notes Level of Education: High School Language: Question Answer Notes Languages spoken: Montenegrin Roman Catholic: Question Answer Notes Roman Catholic 99 Other Sexual Hx: Question Answer Notes Had sex in the last 12 months (vaginal, oral, or anal)? Yes with Women only Use protection? No Alcohol Screening: Question Answer Notes Did you [...] FOR REFERRAL No Information VITAL SIGNS Weight 223 lbs May, Height 73 in May, BMI 29.42 kg/m2 May, Heart Rate 76 /min May, Respiratory Rate 18 /min May, Temperature 97.8 degrees Fahrenheit May, Oximetry 99%ra May, Blood pressure systolic 140 mm Hg May, Blood pressure diastolic 82 mm Hg May, MEDICATIONS Medication SIG (Take, Route, Frequency, Duration) Start Date En d Date Status Sulfamethoxazole-Trimethoprim 800-160 MG 1 tablet Orally bid for 21 day(s) May, Active Finasteride 5 MG 1 tablet Orally Once a day for 30 day(s) May, 020 Active Tamsulosin HCl 0.4 MG 1 capsule Orally Once a day for 30 day(s) May, Active Myrbetriq 25 MG TK 1 T PO QD Oral Active Multi For Him 50+ - as directed Orally Ac tive Voltaren 1 % as directed to knees Transdermal four ti mes daily as needed May, Active PROCEDURES No Information RESULTS Component Value Reference Range UA URINALYSIS Reviewed date:06/13/2020 08:40:07 Interpretation: Performing Lab:[facility] [address] [place] [id number] , ,[place] [address] URINE CULTURE Reviewed date:06/13/2020 12:01:09 Interpretation: Performing Lab:[facility] [address] [facility] [address] , ,[place] [address] REASON FOR VISIT urinary frequency MEDICAL (GENERAL) HISTORY Type Description Date Surgical History No Surgical history information Goals Section No Information Health Concerns No Information MEDICAL EQUIPMENT No Information MENTAL STATUS No Information FUNCTIONAL STATUS No Information ASSESSMENTS Encounter Date Diagnosis Notes May, Dysuria-frequency syndrome (ICD-10 - N34 .3) May, Bladder pain (ICD-10 - R39.89) May, Nocturia (ICD-10 - R35.1) May, Benign prostatic hyperplasia with lower urinary tract symptoms (ICD-10 - N40.1) PLAN OF TREATMENT Medication Medication Name Sig Start Date Stop Date Tamsulosin HCl 0.4 MG 1 capsule Orally Once a day for 30 day(s) May, Sulfamethoxazole-Trimethoprim 800-160 MG 1 tablet Orally bid for 21 day(s) May, Treatment Notes Test Name Order Date uro PVR (Post Voiding Residual) Bladder Scan 9 Next Appt Details Provider Name:Gage Lopes, 2020-07-13 09:00:00 AM, [address], [place], [address], Provider Name:Lyudmila Medina, 2020-08-07 07:3 0:00 AM, [address] [place], [address], Insurance Providers Payer Name Payer Address Payer Phone Insured Name Patient Relati onship to Insured Coverage Start Date Coverage End Date [employer] [address] [place] [address] [employer]OLODYMYR CISNEROS self
[2020-10-02] MEDS ORDERED: propofoL 200 MG/20 ML VIAL As Ordered ONE ×2 (08:09→09:06)
[2020-10-02] MEDS ORDERED: LIDOCAINE 2% 100MG/5ML SDV (FOR ANES.) As Ordered ONE (08:09)
[2020-10-02] MEDS ORDERED: ePHEDrine SULFATE 25 MG/5 ML(5MG/ML) SYRINGE As Ordered ONE (08:56)
--- NOTE | 2020-10-02 09:30 | ROOR ---
Patient Name: Manish Falcon Procedure Date: 10/02/2020 8:34 AM Date of : 1955 Age: 65 Room: [facility] Gender: Male Note Status: Finalized Procedure: Colonoscopy Indications: Screening for colorectal malignant neoplasm Providers: Leonel Prakash MD Referring MD: Lyudmila Medina NP Requesting Provider: Medicines: Monitored Anesthesia Care Complications: No immediate complications. Procedure: Pre-Anesthesia Assessment: - Prior to the procedure, a History and Physical was performed, and patient medications and allergies were reviewed. The patient is competent. The risks and benefits of the procedure and the sedation options and risks were discussed with the patient. All questions were answered and informed consent was obtained. Patient identification and proposed procedure were verified by the physician, the nurse and the anesthesiologist in the procedure room. Mental Status Examination: alert and oriented. Airway Examination: normal oropharyngeal airway and neck mobility. Respiratory Examination: clear to auscultation. CV Examination: normal. Prophylactic Antibiotics: The patient does not require prophylactic antibiotics. Prior Anticoagulants: The patient has taken no previous anticoagulant or antiplatelet agents. ASA Grade Assessment: II - A patient with mild systemic disease. After reviewing the risks and benefits, the patient was deemed in satisfactory condition to undergo the procedure. The anesthesia plan was to use monitored anesthesia care (MAC). Immediately prior to administration of medications, the patient was re-assessed for adequacy to receive sedatives. The heart rate, respiratory rate, oxygen saturations, blood pressure, adequacy of pulmonary ventilation, and response to care were monitored throughout the procedure. The physical status of the patient was re-assessed after the procedure. The Colonoscope was introduced through the anus and advanced to the terminal ileum, with identification of the appendiceal orifice and IC valve. The colonoscopy was performed without difficulty. The patient tolerated the procedure well. The quality of the bowel preparation was good. The terminal ileum, ileocecal valve, appendiceal orifice, and rectum were photographed. Scope insertion time was 2 minutes. Scope withdrawal time was 10 minutes. The total duration of the procedure was 15 minutes. Findings: The perianal and digital rectal examinations were normal. The terminal ileum appeared normal. Four sessile polyps were found in the recto-sigmoid colon, transverse colon and ascending colon. The polyps were 3 to 8 mm in size. These polyps were removed with a hot snare. Resection and retrieval were complete. Verification of patient identification for the specimen was done by the physician and nurse using the patient's name, date and medical record number. Estimated blood loss was minimal. A 15 mm polyp was found in the hepatic flexure. The polyp was sessile. The polyp was removed with a hot snare. Resection and retrieval were complete. To close a defect after polypectomy, one hemostatic clip was successfully placed. There was no bleeding at the end of the procedure. Multiple small and large-mouthed diverticula were found from sigmoid to transverse colon. There was no evidence of diverticular bleeding. Non-bleeding external and internal hemorrhoids were found during retroflexion. The hemorrhoids were small. Impression: - The examined portion of the ileum was normal. - Four 3 to 8 mm polyps at the recto-sigmoid colon, in the transverse colon and in the ascending colon, removed with a hot snare. Resected and retrieved. - One 15 mm polyp at the hepatic flexure, removed with a hot snare. Resected and retrieved. Clip was placed. - Moderate diverticulosis from sigmoid to transverse colon. There was no evidence of diverticular bleeding. - Non-bleeding external and internal hemorrhoids. Recommendation: - Patient has a contact number available for emergencies. The signs and symptoms of potential delayed complications were discussed with the patient. Return to normal activities tomorrow. Written discharge instructions were provided to the patient. - NPO. - Continue present medications. - Await pathology results. - Use fiber, for example Citrucel, Fibercon, Konsyl or Metamucil. - Repeat colonoscopy in 3 years for surveillance based on pathology results. - Telephone GI clinic for pathology results in 2 weeks. - Return to primary care physician. Procedure Code(s): --- Professional --- 26110, Colonoscopy, flexible; with removal of tumor(s), polyp(s), or other lesion(s) by snare technique Diagnosis Code(s): --- Professional --- K63.5, Polyp of colon Z12.11, Encounter for screening for malignant neoplasm of colon K64.8, Other hemorrhoids K57.30, Diverticulosis of large intestine without perforation or abscess without bleeding CPT copyright 2019 [employer]. All rights reserved. The codes documented in this report are preliminary and upon welt sole layer review may be revised to meet current compliance requirements. Leonel Prakash MD Leonel Prakash MD 10/02/2020 9:29:49 AM Electronically signed by Leonel Prakash MD Number of Addenda: 0 Note Initiated On: 10/02/2020 8:34 AM Estimated Blood Loss: Estimated blood loss was minimal.
[2020-10-02 09:38] VITALS: BP 117/72
== END 2020-10-02 09:43 | disposition home or self-care (01) ==
LOC: M OPP 07:34
PROVIDERS: ATTEND Internal Medicine Gastroenterology
DX: Z12.11 Encounter for screening for malignant neoplasm of colon (principal); K63.5 Polyp of colon; K57.30 Diverticulosis of large intestine without perforation or abscess without bleeding; K64.8 Other hemorrhoids

== ENCOUNTER → 2021-04-04 | Outpatient (CLI) | payer OTHER ==
[~2021-04-04] MED LIST changes: -NS 1,000 ML IV ONE; +VITMTA PO
== END ==
LOC: M LABSMTC 09:50
PROVIDERS: ATTEND Anesthesiology
DX: Z01.812 Encounter for preprocedural laboratory examination (principal); Z20.822 Contact with and (suspected) exposure to COVID-19

== ENCOUNTER 2021-04-09 11:20 | Day surgery (SDC) | payer OTHER ==
[~2021-04-09] VITALS: Ht 185.4 cm; Wt 106.1 kg
[~2021-04-09 11:20] MED LIST changes: +NS 1,000 ML IV ONE
[2021-04-09] MEDS ORDERED: propofoL 200 MG/20 ML VIAL As Ordered ONE (12:50)
[2021-04-09] MEDS ORDERED: fentaNYL 100 MCG/2 ML INJECTION (J3010) As Ordered ONE (12:50)
[2021-04-09] MEDS ORDERED: LIDOCAINE 2% 100MG/5ML SDV (FOR ANES.) As Ordered ONE (12:50)
[2021-04-09 13:40] VITALS: BP 160/103
--- NOTE | 2021-04-09 13:55 | ROOR ---
Patient Name: Manish Falcon Procedure Date: 04/09/2021 1:03 PM Date of : 1955 Age: 66 Room: [facility] Gender: Male Note Status: Finalized Procedure: Upper GI endoscopy Indications: Epigastric abdominal pain Providers: Leonel Prakash MD Referring MD: Lyudmila Medina NP Requesting Provider: Medicines: Monitored Anesthesia Care Complications: No immediate complications. Procedure: Pre-Anesthesia Assessment: - Prior to the procedure, a History and Physical was performed, and patient medications and allergies were reviewed. The patient is competent. The risks and benefits of the procedure and the sedation options and risks were discussed with the patient. All questions were answered and informed consent was obtained. Patient identification and proposed procedure were verified by the physician, the nurse and the anesthesiologist in the procedure room. Mental Status Examination: alert and oriented. Airway Examination: normal oropharyngeal airway and neck mobility. Respiratory Examination: clear to auscultation. CV Examination: normal. Prophylactic Antibiotics: The patient does not require prophylactic antibiotics. Prior Anticoagulants: The patient has taken no previous anticoagulant or antiplatelet agents. ASA Grade Assessment: III - A patient with severe systemic disease. After reviewing the risks and benefits, the patient was deemed in satisfactory condition to undergo the procedure. The anesthesia plan was to use monitored anesthesia care (MAC). Immediately prior to administration of medications, the patient was re-assessed for adequacy to receive sedatives. The heart rate, respiratory rate, oxygen saturations, blood pressure, adequacy of pulmonary ventilation, and response to care were monitored throughout the procedure. The physical status of the patient was re-assessed after the procedure. The Endoscope was introduced through the mouth, and advanced to the second part of duodenum. The upper GI endoscopy was accomplished without difficulty. The patient tolerated the procedure well. Findings: LA Grade C (one or more mucosal breaks continuous between tops of 2 or more mucosal folds, less than 75% circumference) esophagitis with no bleeding was found in the lower third of the esophagus. Biopsies were taken with a cold forceps for histology. Verification of patient identification for the specimen was done by the physician and nurse using the patient's name, date and medical record number. Estimated blood loss was minimal. Scattered moderate inflammation characterized by erythema, friability and granularity was found in the gastric antrum. Biopsies were taken with a cold forceps for Helicobacter pylori testing. The duodenal bulb and second portion of the duodenum were normal. Impression: - LA Grade C reflux esophagitis. Rule out Cuello's esophagus. Biopsied. - Gastritis. Biopsied. - Normal duodenal bulb and second portion of the duodenum. Recommendation: - Patient has a contact number available for emergencies. The signs and symptoms of potential delayed complications were discussed with the patient. Return to normal activities tomorrow. Written discharge instructions were provided to the patient. - High fiber diet. - Continue present medications. 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 - Use sucralfate suspension 1 gram PO QID. - Follow an antireflux regimen. - Await pathology results. - Telephone GI clinic for pathology results in 2 weeks. - Repeat upper endoscopy in 6 months to check healing and to evaluate the response to therapy. - Return to GI clinic if persistent symptoms or new symptoms. - Return to primary care physician. Procedure Code(s): --- Professional --- 69162, Esophagogastroduodenoscopy, flexible, transoral; with biopsy, single or multiple Diagnosis Code(s): --- Professional --- K21.0, Gastro-esophageal reflux disease with esophagitis K29.70, Gastritis, unspecified, without bleeding R10.13, Epigastric pain CPT copyright 2019 [employer]. All rights reserved. The codes documented in this report are preliminary and upon spinning frame tender review may be revised to meet current compliance requirements. Leonel Prakash MD Leonel Prakahs MD 04/09/2021 1:54:29 PM Electronically signed by Leonel Prakash MD Number of Addenda: 0 Note Initiated On: 04/09/2021 1:03 PM Estimated Blood Loss: Estimated blood loss was minimal.
== END 2021-04-09 13:56 | disposition home or self-care (01) ==
LOC: M OPP 11:20
PROVIDERS: ATTEND Internal Medicine Gastroenterology
DX: K21.00 Gastro-esophageal reflux disease with esophagitis, without bleeding (principal); K29.70 Gastritis, unspecified, without bleeding; R10.13 Epigastric pain
CPT/HCPCS: 43239; 88305; J3010

== ENCOUNTER 2021-10-25 12:48 | Outpatient (RCR) | payer OTHER ==
[~2021-10-25 12:48] MED LIST changes: -NS 1,000 ML IV ONE
== END 2021-10-28 ==
LOC: M ST 12:48
PROVIDERS: ATTEND Otolaryngology
DX: M25.562 Pain in left knee (principal); M25.561 Pain in right knee; M22.2X2 Patellofemoral disorders, left knee

== ENCOUNTER → 2021-11-07 | Outpatient (CLI) | payer OTHER | LOC: M PLALAB 11:21 | PROVIDERS: ATTEND Otolaryngology | DX: R49.0 Dysphonia (principal) ==

== ENCOUNTER → 2021-11-19 | Outpatient (CLI) | payer OTHER | LOC: M RAD 10:37 | PROVIDERS: ATTEND Otolaryngology | DX: R47.1 Dysarthria and anarthria (principal); R90.82 White matter disease, unspecified; G31.9 Degenerative disease of nervous system, unspecified ==

== ENCOUNTER → 2021-11-22 | Outpatient (CLI) | payer OTHER ==
[~2021-11-22] MED LIST changes: +E-Z-GAS II EFFERVESCENT PACKET (SODIUM BICARB./CITRIC ACID/SIMETHICONE) As Ordered ONE; +E-Z-HD 98% w/w 340GM SUSP BTL As Ordered ONE; +E-Z-PAQUE 96% w/w SUSP 176GM BTL As Ordered ONE
== END ==
LOC: M RAD 08:04
PROVIDERS: ATTEND Otolaryngology
DX: K21.9 Gastro-esophageal reflux disease without esophagitis (principal); R49.0 Dysphonia; K44.9 Diaphragmatic hernia without obstruction or gangrene

== ENCOUNTER → 2021-12-18 | Outpatient (CLI) | payer OTHER ==
[~2021-12-18] MED LIST changes: -E-Z-GAS II EFFERVESCENT PACKET (SODIUM BICARB./CITRIC ACID/SIMETHICONE) As Ordered ONE; -E-Z-HD 98% w/w 340GM SUSP BTL As Ordered ONE; -E-Z-PAQUE 96% w/w SUSP 176GM BTL As Ordered ONE
[2021-12-18 13:39] LABS: BLOOD UREA NITROGEN 18 MG/DL (7-18); CREATININE FOR GFR 0.97 MG/DL (0.70-1.30); FREE T4 0.84 NG/DL (0.76-1.46); GLOMERULAR FILTRATION RATE > 60.0 (>49)
[2021-12-18 15:56] LABS: FOLATE > 24.0 NG/ML
[2021-12-24 18:11] LABS: VITAMIN B12 LEVEL 595 PG/ML
[2021-12-31 07:08] LABS: ACETYLCHOLINE RCPTOR BINDING A 0.08 nmol/L (0.00-0.24); VITAMIN B6,PYRIDOXAL PHOSPHATE 41.5 ug/L (3.4-65.2); VITAMIN E(ALPHA TOCOPHEROL) 18.9 mg/L (9.0-29.0); VITAMIN E(GAMMA TOCOPHEROL) 0.7 mg/L (0.5-4.9)
== END ==
LOC: M PLALAB 09:21
PROVIDERS: ATTEND Psychiatry & Neurology Neurology
DX: R13.10 Dysphagia, unspecified (principal); E53.8 Deficiency of other specified B group vitamins; R47.9 Unspecified speech disturbances

== ENCOUNTER → 2022-02-28 | Outpatient (CLI) | payer OTHER ==
[2022-02-28 08:33] LABS: BASO % 0.6 % (0.0-1.0); EOS # 0.1 10^3/uL (0.0-0.5); EOS % 0.9 % (0.0-3.0); HEMATOCRIT 45.5 % (42.0-52.0); HEMOGLOBIN 15.3 g/dl (13.5-17.5); LYMPH # 1.3 10^3/uL (1.5-5.0); LYMPH % 18.9 % (24.0-44.0); MEAN CORPUSCULAR HEMOGLOBIN 28.9 pg (27.0-33.0); MEAN CORPUSCULAR HGB CONC 33.6 g/dl (32.0-36.5); MEAN CORPUSCULAR VOLUME 85.8 fl (80.0-96.0); MONO # 0.8 10^3/uL (0.0-0.8); MONO % 12.1 % (2.0-8.0); NEUTROPHILS # 4.6 10^3/uL (1.5-8.5); NEUTROPHILS % 67.2 % (36.0-66.0); PLATELET COUNT, AUTOMATED 169 10^3/uL (150-450); WHITE BLOOD COUNT 6.8 10^3/uL (4.0-10.0)
[2022-02-28 09:08] LABS: ALBUMIN 3.7 GM/DL (3.2-5.2); BILIRUBIN,DIRECT 0.4 MG/DL (0.0-0.2); BILIRUBIN,TOTAL 0.9 MG/DL (0.2-1.0); TOTAL PROTEIN 6.5 GM/DL (6.4-8.2)
== END ==
LOC: M LAB 07:54
PROVIDERS: ATTEND Psychiatry & Neurology Neurology
DX: G12.21 Amyotrophic lateral sclerosis (principal)

== ENCOUNTER → 2022-09-10 | Outpatient (REF) | payer BC, MEDICARE | LOC: M SFHCPLAZ 13:15 | PROVIDERS: ATTEND Physician Assistant | DX: J02.9 Acute pharyngitis, unspecified (principal) ==

== ENCOUNTER → 2022-09-19 | Outpatient (CLI) | payer BC, MEDICARE ==
[2022-09-19 14:02] LABS: BASO % 0.7 % (0.0-1.0); EOS # 0.1 10^3/uL (0.0-0.5); EOS % 1.3 % (0.0-3.0); HEMATOCRIT 43.1 % (42.0-52.0); HEMOGLOBIN 14.3 g/dl (13.5-17.5); LYMPH # 1.2 10^3/uL (1.5-5.0); MEAN CORPUSCULAR HGB CONC 33.2 g/dl (32.0-36.5); MEAN CORPUSCULAR VOLUME 90.4 fl (80.0-96.0); MONO # 0.8 10^3/uL (0.0-0.8); MONO % 13.4 % (2.0-8.0); NEUTROPHILS % 65.3 % (36.0-66.0); PLATELET COUNT, AUTOMATED 171 10^3/uL (150-450); RED BLOOD COUNT 4.77 10^6/uL (4.30-6.10); WHITE BLOOD COUNT 6.1 10^3/uL (4.0-10.0)
[2022-09-19 14:40] LABS: ALBUMIN 3.6 G/DL (3.2-5.2); ALKALINE PHOSPHATASE 84 U/L (46-116); ALT/SGPT 26 U/L (7.0-40); AST/SGOT 25 U/L (<34); BILIRUBIN,TOTAL 0.8 MG/DL (0.3-1.2); BLOOD UREA NITROGEN 19 MG/DL (9-23); CALCIUM LEVEL 9.3 MG/DL (8.3-10.6); CARBON DIOXIDE LEVEL 32 MMOL/L (20-31); CHLORIDE LEVEL 103 MMOL/L (98-107); CREATININE FOR GFR 0.72 MG/DL (0.70-1.30); GLOMERULAR FILTRATION RATE > 60.0 (>49); GLUCOSE, FASTING 76 MG/DL (74-106); SODIUM LEVEL 142 MMOL/L (136-145); THYROID STIMULATING HORMONE 1.177 uIU/ML (0.55-4.78); TOTAL PROTEIN 6.1 G/DL (5.7-8.2)
== END ==
LOC: M PLALAB 11:24
PROVIDERS: ATTEND Physician Assistant
DX: R60.0 Localized edema (principal)

== ENCOUNTER → 2022-10-17 | Outpatient (CLI) | payer MEDICARE, BC | LOC: M RAD 11:29 | PROVIDERS: ATTEND Physician Assistant | DX: R60.0 Localized edema (principal) ==

== ENCOUNTER → 2022-11-24 | Outpatient (REF) | payer MEDICARE, BC ==
[2022-11-24 12:30] LABS: BASO # 0.1 10^3/uL (0.0-0.2); BASO % 0.6 % (0.0-1.0); EOS # 0.1 10^3/uL (0.0-0.5); HEMOGLOBIN 11.8 g/dl (13.5-17.5); LYMPH # 1.2 10^3/uL (1.5-5.0); LYMPH % 15.4 % (24.0-44.0); MEAN CORPUSCULAR HEMOGLOBIN 30.2 pg (27.0-33.0); MEAN CORPUSCULAR HGB CONC 32.8 g/dl (32.0-36.5); MEAN CORPUSCULAR VOLUME 92.1 fl (80.0-96.0); MONO % 12.6 % (2.0-8.0); NEUTROPHILS # 5.5 10^3/uL (1.5-8.5); NEUTROPHILS % 70.1 % (36.0-66.0); PLATELET COUNT, AUTOMATED 184 10^3/uL (150-450); RED BLOOD COUNT 3.91 10^6/uL (4.30-6.10); WHITE BLOOD COUNT 7.8 10^3/uL (4.0-10.0)
[2022-11-24 12:52] LABS: URIC ACID 8.2 MG/DL (3.7-9.2)
[2022-11-24 12:56] LABS: PERCENT SATURATION 26.9 % (19.7-50.0); THYROID STIMULATING HORMONE 1.782 uIU/ML (0.55-4.78)
== END ==
LOC: M LAB REF 11:37
PROVIDERS: ATTEND Physician Assistant
DX: D64.9 Anemia, unspecified (principal); E79.0 Hyperuricemia without signs of inflammatory arthritis and tophaceous disease

== ENCOUNTER → 2022-11-24 | Outpatient (CLI) | payer MEDICARE, BC | LOC: M CARPUL 14:02 | PROVIDERS: ATTEND Physician Assistant | DX: R94.31 Abnormal electrocardiogram [ECG] [EKG] (principal); R60.0 Localized edema; D64.9 Anemia, unspecified; E79.0 Hyperuricemia without signs of inflammatory arthritis and tophaceous disease ==

== ENCOUNTER → 2023-03-04 | Outpatient (CLI) | payer MEDICARE, BC ==
[2023-03-04 14:16] LABS: BASO # 0.1 10^3/uL (0.0-0.2); BASO % 0.7 % (0.0-1.0); EOS # 0.1 10^3/uL (0.0-0.5); EOS % 1.8 % (0.0-3.0); HEMATOCRIT 38.2 % (42.0-52.0); HEMOGLOBIN 13.1 g/dl (13.5-17.5); LYMPH # 1.1 10^3/uL (1.5-5.0); LYMPH % 14.4 % (24.0-44.0); MEAN CORPUSCULAR HEMOGLOBIN 30.8 pg (27.0-33.0); MEAN CORPUSCULAR HGB CONC 34.3 g/dl (32.0-36.5); MEAN CORPUSCULAR VOLUME 89.9 fl (80.0-96.0); MONO % 13.5 % (2.0-8.0); NEUTROPHILS # 5.2 10^3/uL (1.5-8.5); NEUTROPHILS % 69.2 % (36.0-66.0); PLATELET COUNT, AUTOMATED 194 10^3/uL (150-450); RED BLOOD COUNT 4.25 10^6/uL (4.30-6.10); WHITE BLOOD COUNT 7.6 10^3/uL (4.0-10.0)
[2023-03-04 14:41] LABS: ALBUMIN 3.6 G/DL (3.2-5.2); BILIRUBIN,DIRECT 0.2 MG/DL (<0.4); BILIRUBIN,TOTAL 0.5 MG/DL (0.3-1.2); TOTAL PROTEIN 6.1 G/DL (5.7-8.2)
== END ==
LOC: M PLALAB 11:45
PROVIDERS: ATTEND Psychiatry & Neurology Neurology
DX: G12.21 Amyotrophic lateral sclerosis (principal)

== ENCOUNTER → 2023-05-27 | Outpatient (CLI) | payer MEDICARE, BC ==
[2023-05-27 16:28] LABS: BLOOD UREA NITROGEN 20 MG/DL (9-23); CALCIUM LEVEL 9.2 MG/DL (8.3-10.6); CARBON DIOXIDE LEVEL 38 MMOL/L (20-31); CHLORIDE LEVEL 98 MMOL/L (98-107); CREATININE FOR GFR 0.62 MG/DL (0.70-1.30); GLOMERULAR FILTRATION RATE > 60.0 (>49); GLUCOSE, FASTING 101 MG/DL (74-106); MAGNESIUM LEVEL 1.5 MG/DL (1.8-2.4); POTASSIUM SERUM 3.1 MMOL/L (3.5-5.1); SODIUM LEVEL 138 MMOL/L (136-145)
== END ==
LOC: M PLALAB 14:29
PROVIDERS: ATTEND Family Medicine
DX: R60.9 Edema, unspecified (principal)

== ENCOUNTER 2023-06-28 10:01 | Emergency (ER) | payer MEDICARE, BC ==
[~2023-06-28] VITALS: Ht 185.4 cm; Wt 82.7 kg
[2023-06-28] MEDS ORDERED: RILU1TAB2 PO (10:21)
[2023-06-28] MEDS ORDERED: NUED20CA (10:34)
[2023-06-28] MEDS ORDERED: TRAM50TA2 (10:38)
[2023-06-28] MEDS ORDERED: SENN8.8S11 (10:38)
[2023-06-28] MEDS ORDERED: TORS20TA2 (10:38)
[2023-06-28] MEDS ORDERED: POLY17PO18 (10:38)
[2023-06-28] MEDS ORDERED: LOSA50TA28 (10:38)
[2023-06-28] MEDS ORDERED: DOCU100C16 (10:38)
[2023-06-28 12:00] VITALS: BP 138/81; TEMP 98.3; O2SAT 98
== END 2023-06-28 12:15 | disposition home or self-care (01) ==
LOC: M ED 10:01
DX: K94.23 Gastrostomy malfunction (principal); K21.9 Gastro-esophageal reflux disease without esophagitis; K59.00 Constipation, unspecified; G12.21 Amyotrophic lateral sclerosis; Z79.811 Long term (current) use of aromatase inhibitors; Z79.810 Long term (current) use of selective estrogen receptor modulators (SERMs); Z79.899 Other long term (current) drug therapy

== ENCOUNTER 2023-10-27 18:43 | Emergency (ER) | payer MEDICARE, BC ==
[~2023-10-27] VITALS: Ht 185.4 cm; Wt 82.7 kg
[~2023-10-27 18:43] MED LIST changes: +DOCU100C16; +LOSA50TA28; +NUED20CA; +POLY17PO18; +RILU1TAB2 PO; +SENN8.8S11; +TORS20TA2; +TRAM50TA2
[2023-10-27 22:28] VITALS: O2SAT 99
[2023-10-27 22:31] VITALS: BP 146/87; TEMP 99.1
== END 2023-10-27 22:30 | disposition home or self-care (01) ==
LOC: M ED 18:43
DX: K94.23 Gastrostomy malfunction (principal); K59.00 Constipation, unspecified; R35.0 Frequency of micturition; G12.21 Amyotrophic lateral sclerosis; Z99.3 Dependence on wheelchair; Z79.899 Other long term (current) drug therapy

== ENCOUNTER → 2024-02-24 | Outpatient (REF) | payer MEDICARE, BC ==
[2024-02-24 15:06] LABS: BLOOD UREA NITROGEN 15 MG/DL (9-23); CALCIUM LEVEL 8.5 MG/DL (8.3-10.6); CARBON DIOXIDE LEVEL 29 MMOL/L (20-31); CHLORIDE LEVEL 109 MMOL/L (98-107); CREATININE FOR GFR 0.39 MG/DL (0.70-1.30); GLOMERULAR FILTRATION RATE > 60.0 (>49); GLUCOSE, FASTING 94 MG/DL (74-106); POTASSIUM SERUM 3.8 MMOL/L (3.5-5.1); SODIUM LEVEL 141 MMOL/L (136-145)
== END ==
LOC: M LAB REF 14:30
PROVIDERS: ATTEND Family Medicine
DX: E87.6 Hypokalemia (principal)

== ENCOUNTER → 2024-04-15 | Outpatient (CLI) | payer MEDICARE, BC ==
[~2024-04-15] MED LIST changes: +ACET20VL; +ALBU2.5V10 NEB; +BACL1TAB9 PO; +FLON1SPR NARES; +GUAI100L6 PEG; +GUAI100L6 PO; -LOSA50TA28; +LOSA50TA28 PO; +METO5TAB2 PO; +MEXI200C PO; -NUED20CA; +NUED20CA PO; -POLY17PO18; +POLY17PO18 PO; +TIZA2CAP PEG; -TRAM50TA2; +TRAM50TA2 PO
== END ==
LOC: M PAL 08:40
PROVIDERS: ATTEND Nurse Practitioner Adult Health
DX: G89.29 Other chronic pain (principal); G12.21 Amyotrophic lateral sclerosis; Z99.3 Dependence on wheelchair; K11.7 Disturbances of salivary secretion; M62.838 Other muscle spasm; F48.2 Pseudobulbar affect; Z51.5 Encounter for palliative care; Z66 Do not resuscitate; Z74.1 Need for assistance with personal care; Z79.51 Long term (current) use of inhaled steroids; Z79.891 Long term (current) use of opiate analgesic; Z79.899 Other long term (current) drug therapy

== ENCOUNTER → 2024-05-18 | Outpatient (CLI) | payer MEDICARE, BC ==
[~2024-05-18] MED LIST changes: +NYST1POW9 TOP
== END ==
LOC: M PAL 14:09
PROVIDERS: ATTEND Nurse Practitioner Adult Health
DX: G89.29 Other chronic pain (principal); G12.21 Amyotrophic lateral sclerosis; L89.811 Pressure ulcer of head, stage 1; B37.2 Candidiasis of skin and nail; K11.7 Disturbances of salivary secretion; M62.838 Other muscle spasm; F48.2 Pseudobulbar affect; R03.0 Elevated blood-pressure reading, without diagnosis of hypertension; Z99.3 Dependence on wheelchair; Z51.5 Encounter for palliative care; Z66 Do not resuscitate; Z74.1 Need for assistance with personal care; Z79.51 Long term (current) use of inhaled steroids; Z79.891 Long term (current) use of opiate analgesic; Z79.899 Other long term (current) drug therapy; Z99.89 Dependence on other enabling machines and devices; Z93.1 Gastrostomy status

== ENCOUNTER → 2024-07-07 | Outpatient (REF) | payer MEDICARE, BC ==
[~2024-07-07] MED LIST changes: +NYST1POW3 TOP; -NYST1POW9 TOP
[2024-07-07 12:30] LABS: APPEARANCE, URINE CLEAR (CLEAR); BACTERIA, URINE AUTO NEGATIVE (NEGATIVE); BILIRUBIN, URINE AUTO NEGATIVE (NEGATIVE); BLOOD, URINE BLOOD NEGATIVE (NEGATIVE); COLOR, URINE YELLOW (YELLOW); GLUCOSE, URINE (UA) AUTO NEGATIVE (NEGATIVE); KETONE, URINE AUTO NEGATIVE (NEGATIVE); LEUKOCYTE ESTERASE, URINE AUTO NEGATIVE (NEGATIVE); NITRITE, URINE AUTO NEGATIVE (NEGATIVE); PROTEIN, URINE AUTO NEGATIVE (NEGATIVE); RBC, URINE AUTO 0 /HPF (0-3); SPECIFIC GRAVITY URINE AUTO 1.006 (1.002-1.035); SQUAMOUS EPITHELIAL CELL UR AU 0 /HPF (0-6); UROBILINOGEN, URINE AUTO 0.2 mg/dL (0.0-2.0); WBC, URINE AUTO 0 /HPF (0-3)
== END ==
LOC: M SFHCPLAZ 12:12
PROVIDERS: ATTEND Family Medicine
DX: R35.0 Frequency of micturition (principal)

== ENCOUNTER 2024-12-24 11:56 | Emergency (ER) | payer MEDICARE, BC ==
[2024-12-24 14:12] LABS: BASO # 0.1 10^3/uL (0.0-0.2); BASO % 0.7 % (0.0-1.0); EOS # 0.1 10^3/uL (0.0-0.5); EOS % 0.6 % (0.0-3.0); HEMATOCRIT 45.4 % (42.0-52.0); HEMOGLOBIN 15.1 g/dl (13.5-17.5); LYMPH # 0.9 10^3/uL (1.5-5.0); LYMPH % 11.3 % (24.0-44.0); MEAN CORPUSCULAR HEMOGLOBIN 30.2 pg (27.0-33.0); MEAN CORPUSCULAR HGB CONC 33.3 g/dl (32.0-36.5); MEAN CORPUSCULAR VOLUME 90.8 fl (80.0-96.0); MONO % 12.3 % (2.0-8.0); NEUTROPHILS # 6.1 10^3/uL (1.5-8.5); NEUTROPHILS % 74.6 % (36.0-66.0); PLATELET COUNT, AUTOMATED 175 10^3/uL (150-450); WHITE BLOOD COUNT 8.1 10^3/uL (4.0-10.0)
[2024-12-24 14:34] LABS: BLOOD UREA NITROGEN 17 MG/DL (9-23); CALCIUM LEVEL 9.5 MG/DL (8.3-10.6); CARBON DIOXIDE LEVEL 30 MMOL/L (20-31); CHLORIDE LEVEL 104 MMOL/L (98-107); GLOMERULAR FILTRATION RATE > 90.0 (>49); GLUCOSE, FASTING 91 MG/DL (74-106); POTASSIUM SERUM 4.1 MMOL/L (3.5-5.1); SODIUM LEVEL 143 MMOL/L (136-145)
[2024-12-24 19:30] VITALS: BP 161/105
[2024-12-24] MEDS: LOSARTAN 25 MG TAB PEG ONE (19:30)
[2024-12-24 21:13] VITALS: BP 159/100; TEMP 98.1; O2SAT 94
== END 2024-12-24 21:20 | disposition home or self-care (01) ==
LOC: EDBD 11:56 → M ED 11:56
DX: K59.00 Constipation, unspecified (principal); I10 Essential (primary) hypertension; N32.81 Overactive bladder; Z79.52 Long term (current) use of systemic steroids; Z79.899 Other long term (current) drug therapy

== ENCOUNTER → 2024-12-28 | Outpatient (CLI) | payer MEDICARE, BC ==
[~2024-12-28] MED LIST changes: -ACET20VL; +ACET20VL NEB; +EQL0.65S NARES; +GABA-1172 PEG; +LOSA100T46 PEG; +METO5SOL19 PEG; +MEXI200C PEG; -MEXI200C PO; +NUED20CA PEG; -NUED20CA PO; +OXYB10TA23 PEG; +POLY17PO18 PEG; -POLY17PO18 PO; +RILU1TAB2 PEG; -RILU1TAB2 PO; -SENN8.8S11; +SENN8.8S11 PEG; +TORS5TAB2 PEG; +TRAN1DIS4 TOP
== END ==
LOC: M PAL 14:25
PROVIDERS: ATTEND Physician Assistant
DX: Z51.5 Encounter for palliative care (principal); Z66 Do not resuscitate; G12.22 Progressive bulbar palsy; Z79.891 Long term (current) use of opiate analgesic; K11.7 Disturbances of salivary secretion; K59.09 Other constipation

== ENCOUNTER 2024-12-30 15:27 | Inpatient (IN) | payer MEDICARE, BC ==
[~2024-12-30] VITALS: Ht 185.4 cm; Wt 74.1 kg
[~2024-12-30 15:27] MED LIST changes: -EQL0.65S NARES; -GABA-1172 PEG; -LOSA100T46 PEG; -METO5SOL19 PEG; -OXYB10TA23 PEG; -TORS5TAB2 PEG; -TRAN1DIS4 TOP
[2024-12-30 16:05] LABS: ABG BASE EXCESS -0.7 (-2.0-2.0); ABG HCO3 23.7 MMOL/L (22.0-26.0); ABG O2 SATURATION 99.9 % (95.0-99.0); ABG PARTIAL PRESSURE CO2 38.5 mmHg (35.0-45.0); ABG PARTIAL PRESSURE O2 206.1 mmHg (75.0-100.0); ABG STANDARD HCO3 23.9 MMOL/L. (22.0-26.0); ABG TOTAL CO2 24.9 MMOL/L (23.0-31.0); ABG pH (ARTERIAL) 7.407 UNITS (7.350-7.450)
[2024-12-30] MEDS: IPRATROPIUM 0.5MG/ALBUTEROL 2.5MG INH SOL UD 3ML NEB PRN (16:10)
[2024-12-30 16:16] LABS: BASO # 0.1 10^3/uL (0.0-0.2); BASO % 0.4 % (0.0-1.0); HEMATOCRIT 41.6 % (42.0-52.0); HEMOGLOBIN 13.5 g/dl (13.5-17.5); LYMPH # 0.4 10^3/uL (1.5-5.0); LYMPH % 2.5 % (24.0-44.0); MEAN CORPUSCULAR HEMOGLOBIN 30.1 pg (27.0-33.0); MEAN CORPUSCULAR HGB CONC 32.5 g/dl (32.0-36.5); MEAN CORPUSCULAR VOLUME 92.9 fl (80.0-96.0); MONO % 12.4 % (2.0-8.0); NEUTROPHILS # 13.5 10^3/uL (1.5-8.5); NEUTROPHILS % 84.3 % (36.0-66.0); PLATELET COUNT, AUTOMATED 194 10^3/uL (150-450); RED BLOOD COUNT 4.48 10^6/uL (4.30-6.10)
[2024-12-30 16:31] LABS: CK-MB VALUE MASS < 1.0 NG/ML (<3.6)
[2024-12-30 16:33] LABS: ALBUMIN 3.8 G/DL (3.2-5.2); ALKALINE PHOSPHATASE 118 U/L (40-129); ALT/SGPT 49 U/L (7.0-40); AST/SGOT 36 U/L (<34); BILIRUBIN,DIRECT 0.4 MG/DL (<0.4); BILIRUBIN,TOTAL 0.8 MG/DL (0.3-1.2); BLOOD UREA NITROGEN 19 MG/DL (9-23); CALCIUM LEVEL 9.2 MG/DL (8.3-10.6); CARBON DIOXIDE LEVEL 29 MMOL/L (20-31); CHLORIDE LEVEL 102 MMOL/L (98-107); CPK CREATINE PHOSPHOKINASE 61 U/L (46-171); CREATININE FOR GFR 0.43 MG/DL (0.70-1.30); GLOMERULAR FILTRATION RATE > 90.0 (>49); GLUCOSE, FASTING 102 MG/DL (74-106); MB/CK RELATIVE INDEX 1.63 (< OR =4); POTASSIUM SERUM 4.3 MMOL/L (3.5-5.1); SODIUM LEVEL 141 MMOL/L (136-145); TOTAL PROTEIN 7.1 G/DL (5.7-8.2)
[2024-12-30 16:34] LABS: THYROXINE (T4) 7.5 UG/DL (4.5-10.9)
[2024-12-30 16:40] LABS: PROCALCITONIN 0.17 ng/ml
[2024-12-30 17:29] LABS: CK-MB VALUE MASS < 1.0 NG/ML (<3.6)
[2024-12-30 17:30] LABS: CPK CREATINE PHOSPHOKINASE 58 U/L (46-171); MB/CK RELATIVE INDEX 1.72 (< OR =4)
[2024-12-30] MEDS: ACETAMINOPHEN *IV* 1,000 MG in IV 1 EA IV ONE (18:04)
[2024-12-30] MEDS ORDERED: ISOVUE-370 76% 100ML VIAL As Ordered ONE (18:10)
[2024-12-30 19:31] LABS: CK-MB VALUE MASS 1.3 NG/ML (<3.6); MB/CK RELATIVE INDEX 2.06 (< OR =4)
[2024-12-30 20:04] LABS: KETONE, URINE AUTO RFX 1+ mg/dL (NEGATIVE); LEUKOCYTE ESTERASE UR AUTO RFX NEGATIVE (NEGATIVE); NITRITE, URINE AUTO RFX NEGATIVE (NEGATIVE); RBC, URINE AUTO RFX 0 /HPF (0-3); SQUAM EPITHELIAL CELL UR AURFX 0 /HPF (0-6); WBC, URINE AUTO RFX 0 /HPF (0-3)
[2024-12-30] MEDS: cefTRIAXone SOD 1 GM in DEXTROSE 5% (D5W) ADV/MINI-BAG 50 ML IV ONE ×2 (20:15→21:32)
[2024-12-30] MEDS: FUROSEMIDE 40MG/4ML VIAL IV ONE (20:16)
[2024-12-30] MEDS: AZITHROMYCIN INJ 500 MG, VIAL MATE ADAPTER 1 EACH in NS 250 ML IV ONE (21:32)
[2024-12-30] MEDS: hydrALAZINE 20MG/ML 1ML VIAL IV STA (21:32)
[2024-12-30] MEDS: D5W/0.9% SODIUM CHLORIDE 1,000 ML IV SCH (22:16)
[2024-12-30] MEDS: LORazepam 2 MG/ML 1ML VIAL IV STA (22:16)
[2024-12-30] MEDS ORDERED: GABA-1172 PEG (22:45)
[2024-12-30] MEDS ORDERED: OXYB10TA23 PEG (22:45)
[2024-12-30] MEDS ORDERED: TORS5TAB2 PEG (22:45)
[2024-12-30] MEDS ORDERED: TRAN1DIS4 TOP (22:45)
[2024-12-30] MEDS ORDERED: LOSA100T46 PEG (22:45)
[2024-12-30] MEDS ORDERED: METO5SOL19 PEG (22:45)
[2024-12-30] MEDS ORDERED: EQL0.65S NARES (22:46)
[2024-12-30] MEDS ORDERED: HOME MED LIST COMPLETE! XX SCH (22:50)
[2024-12-30] MEDS: DOXYCYCLINE HYCLATE 100 MG in DEXTROSE 5% (D5W) MINI-BAG PLU 100 ML IV SCH (23:19)
[2024-12-30] MEDS: IPRATROPIUM 0.5MG/ALBUTEROL 2.5MG INH SOL UD 3ML NEB SCH (23:38)
[2024-12-31] VITALS (33 sets, daily range): BP systolic 141–216; BP diastolic 81–134; TEMP 97.9–101; O2SAT 87–97
[2024-12-31] MEDS: LORazepam 2 MG/ML 1ML VIAL IV PRN (00:27)
[2024-12-31] MEDS: hydrALAZINE 20MG/ML 1ML VIAL IV ONE ×2 (03:04→03:47)
[2024-12-31 05:02] LABS: BASO % 0.1 % (0.0-1.0); HEMATOCRIT 43.1 % (42.0-52.0); HEMOGLOBIN 14.5 g/dl (13.5-17.5); LYMPH # 0.2 10^3/uL (1.5-5.0); LYMPH % 1.1 % (24.0-44.0); MEAN CORPUSCULAR HEMOGLOBIN 30.1 pg (27.0-33.0); MEAN CORPUSCULAR HGB CONC 33.6 g/dl (32.0-36.5); MEAN CORPUSCULAR VOLUME 89.4 fl (80.0-96.0); MONO # 1.8 10^3/uL (0.0-0.8); MONO % 8.8 % (2.0-8.0); NEUTROPHILS # 17.9 10^3/uL (1.5-8.5); NEUTROPHILS % 89.5 % (36.0-66.0); PLATELET COUNT, AUTOMATED 215 10^3/uL (150-450); RED BLOOD COUNT 4.82 10^6/uL (4.30-6.10)
[2024-12-31] MEDS ORDERED: SENNA SYRUP 5ML UDC PEG PRN (05:25)
[2024-12-31] MEDS ORDERED: MIRALAX *UNIT DOSE* 17GM PACKET PEG PRN (05:25)
[2024-12-31] MEDS ORDERED: DEXTROMETHORPHAN 60MG/10ML SUSP 90ML BTL(DELSYM) PEG PRN (05:25)
[2024-12-31 05:27] LABS: ALBUMIN 3.7 G/DL (3.2-5.2); ALKALINE PHOSPHATASE 112 U/L (40-129); ALT/SGPT 43 U/L (7.0-40); AST/SGOT 26 U/L (<34); BILIRUBIN,TOTAL 0.6 MG/DL (0.3-1.2); BLOOD UREA NITROGEN 15 MG/DL (9-23); CALCIUM LEVEL 8.9 MG/DL (8.3-10.6); CARBON DIOXIDE LEVEL 28 MMOL/L (20-31); CHLORIDE LEVEL 103 MMOL/L (98-107); CREATININE FOR GFR 0.35 MG/DL (0.70-1.30); GLOMERULAR FILTRATION RATE > 90.0 (>49); GLUCOSE, FASTING 172 MG/DL (74-106); PHOSPHORUS LEVEL 3.2 MG/DL (2.4-5.1); POTASSIUM SERUM 3.5 MMOL/L (3.5-5.1); SODIUM LEVEL 142 MMOL/L (136-145)
[2024-12-31 05:28] LABS: ERYTHROCYTE SEDIMENTATION RATE 29 mm/hr (0-20)
[2024-12-31 05:29] LABS: THYROID STIMULATING HORMONE 0.314 uIU/ML (0.55-4.78)
[2024-12-31] MEDS ORDERED: PILL CUTTER 1 EACH XX PRN (05:40)
[2024-12-31 05:52] LABS: C REACTIVE PROTEIN QUANTITATIV 14.49 MG/DL (<1.0)
[2024-12-31] MEDS: METOCLOPRAMIDE 5 MG TAB PEG SCH (06:22)
[2024-12-31] MEDS: ACETYLCYSTEINE 20% 4 ML VIAL (200MG/ML) INH SCH (07:42)
[2024-12-31] MEDS: ALBUTEROL SULFATE 2.5MG/0.5ML INH CONCENTRATE NEB SOLN NEB SCH (07:43)
[2024-12-31] MEDS: SODIUM CHLORIDE HYPERTONIC 3% 4ML NEB SOL INH SCH (07:43)
[2024-12-31] MEDS: GABAPENTIN 300 MG CAP PEG SCH (09:00)
[2024-12-31] MEDS ORDERED: FLUTICASONE PROP 0.05% NASAL SPRAY 16 GM (FLONASE) NARES SCH (09:00)
[2024-12-31] MEDS ORDERED: LOSARTAN 50MG TABLET PEG SCH (09:00)
[2024-12-31] MEDS ORDERED: SODIUM CHLORIDE NASAL 0.65% SPRAY BTL (OCEAN) SCH (09:00)
[2024-12-31] MEDS: PANTOPRAZOLE 40MG VIAL IV SCH (09:09)
[2024-12-31] MEDS: guaiFENesin SYRUP 200MG 10ML UDC PEG SCH (09:09)
[2024-12-31] MEDS: AZITHROMYCIN INJ 500 MG, VIAL MATE ADAPTER 1 EACH in NS 250 ML IV SCH (09:46)
[2024-12-31] MEDS: ENOXAPARIN 40MG/0.4ML SYRINGE (J1650 PER 10MG) SC SCH (09:46)
[2024-12-31] MEDS: LOSARTAN 50MG TABLET PO ONE (11:17)
[2024-12-31] MEDS: hydrALAZINE 20MG/ML 1ML VIAL IV PRN (11:17)
[2024-12-31] MEDS ORDERED: TORSEMIDE 10 MG TABLET PEG SCH (16:00)
[2024-12-31] MEDS ORDERED: cefTRIAXone SOD 1 GM in DEXTROSE 5% (D5W) ADV/MINI-BAG 50 ML IV SCH (20:00)
[2024-12-31] MEDS: ACETAMINOPHEN *IV* 1,000 MG in IV 1 EA IV PRN (20:01)
[2024-12-31] MEDS: cefTRIAXone SOD 2 GM in DEXTROSE 5% (D5W) ADV/MINI-BAG 50 ML IV SCH (21:14)
[2024-12-31] MEDS: METOPROLOL TART 50 MG TAB PO ONE (21:16)
[2024-12-31] MEDS: KETOROLAC 30 MG/ML 1ML VIAL IV ONE (21:39)
[2024-12-31 21:57] LABS: BLOOD UREA NITROGEN 23 MG/DL (9-23); CALCIUM LEVEL 9.8 MG/DL (8.3-10.6); CARBON DIOXIDE LEVEL 30 MMOL/L (20-31); CHLORIDE LEVEL 106 MMOL/L (98-107); CREATININE FOR GFR 0.37 MG/DL (0.70-1.30); GLOMERULAR FILTRATION RATE > 90.0 (>49); GLUCOSE, FASTING 201 MG/DL (74-106); MAGNESIUM LEVEL 2.1 MG/DL (1.8-2.4); PHOSPHORUS LEVEL 2.4 MG/DL (2.4-5.1); POTASSIUM SERUM 3.5 MMOL/L (3.5-5.1); SODIUM LEVEL 148 MMOL/L (136-145)
[2025-01-01] VITALS (24 sets, daily range): BP systolic 124–182; BP diastolic 75–111; TEMP 97.2–99; O2SAT 90–98
[2025-01-01 05:22] LABS: HEMOGLOBIN 13.8 g/dl (13.5-17.5); MEAN CORPUSCULAR HEMOGLOBIN 30.1 pg (27.0-33.0); MEAN CORPUSCULAR HGB CONC 32.9 g/dl (32.0-36.5); MEAN CORPUSCULAR VOLUME 91.7 fl (80.0-96.0); PLATELET COUNT, AUTOMATED 244 10^3/uL (150-450); RED BLOOD COUNT 4.58 10^6/uL (4.30-6.10); WHITE BLOOD COUNT 28.3 10^3/uL (4.0-10.0)
[2025-01-01 05:59] LABS: ALBUMIN 3.3 G/DL (3.2-5.2); ALKALINE PHOSPHATASE 109 U/L (40-129); ALT/SGPT 38 U/L (7.0-40); AST/SGOT 31 U/L (<34); BILIRUBIN,TOTAL 0.5 MG/DL (0.3-1.2); BLOOD UREA NITROGEN 26 MG/DL (9-23); CALCIUM LEVEL 9.2 MG/DL (8.3-10.6); CARBON DIOXIDE LEVEL 30 MMOL/L (20-31); CHLORIDE LEVEL 106 MMOL/L (98-107); CREATININE FOR GFR 0.36 MG/DL (0.70-1.30); GLOMERULAR FILTRATION RATE > 90.0 (>49); GLUCOSE, FASTING 129 MG/DL (74-106); POTASSIUM SERUM 3.3 MMOL/L (3.5-5.1); SODIUM LEVEL 147 MMOL/L (136-145); TOTAL PROTEIN 6.3 G/DL (5.7-8.2)
[2025-01-01] MEDS: KCL 10MEQ/100ML SWI (KRUN) 10 MEQ in IV 1 EA IV SCH (06:44)
[2025-01-01] MEDS ORDERED: KCL 20MEQ IN 100ML SWI (KRUN) 20 MEQ in IV 1 EA IV SCH (07:00)
[2025-01-01 13:16] LABS: PROCALCITONIN 0.71 ng/ml
[2025-01-01] MEDS ORDERED: MORPHINE 10MG/0.5ML ORAL CONCENTRATE SOLUTION U/D SL PRN (17:55)
[2025-01-01] MEDS ORDERED: SCOPOLAMINE 1MG TRANSDERMAL PATCH TOP PRN (17:55)
[2025-01-01] MEDS: LORazepam 2 MG/ML 1ML VIAL IV PRN (18:11)
[2025-01-01] MEDS: MORPHINE 2 MG/ML 1ML VIAL IV PRN (18:11)
[2025-01-01] MEDS: MORPHINE 2 MG/ML 1ML VIAL IV STA (18:39)
[2025-01-02] VITALS (7 sets, daily range): O2SAT 50–94
[2025-01-02] MEDS ORDERED: SCOPOLAMINE 1MG TRANSDERMAL PATCH TOP SCH (09:00)
== END 2025-01-02 09:28 | disposition expired | DRG 871 ==
LOC: EDBD 15:27 → M ED 15:27 → M ED INP 21:47 → M ICU 12-31 01:44
PROVIDERS: ADMIT Student in an Organized Health Care Education/Training Program; ATTEND Student in an Organized Health Care Education/Training Program
DX: A41.9 Sepsis, unspecified organism (principal); J96.01 Acute respiratory failure with hypoxia; R53.2 Functional quadriplegia; J69.0 Pneumonitis due to inhalation of food and vomit; I24.89 Other forms of acute ischemic heart disease; G12.21 Amyotrophic lateral sclerosis; E87.0 Hyperosmolality and hypernatremia; J98.11 Atelectasis; I16.0 Hypertensive urgency; I10 Essential (primary) hypertension; F41.9 Anxiety disorder, unspecified; Z66 Do not resuscitate; Z93.1 Gastrostomy status; Z74.01 Bed confinement status; Z99.3 Dependence on wheelchair; Z79.899 Other long term (current) drug therapy